=== PATIENT | female | born 1985 | race Caucasian/White ===

== ENCOUNTER 2024-12-07 01:22 | Inpatient (IN) | payer OTHER, SELFPAY ==
[2024-12-07 01:04] VITALS: BMI 37.8
--- NOTE | 2024-12-07 01:19 | HP.PCM.HOS_ITS ---
[facility] - General General Date of Admission: 12/07/24 Date of Service: 12/07/24 Chief Complaint: Acute lower abdominal pain with nausea and vomiting HPI Narrative JOSE DAVID FLOWERS, is a 39 F who initially presented to [facility] on 12/06/2024 for acute onset lower abdominal pain with nausea and vomiting. She was transferred here on 12/07 for further evaluation. Patient's medical history is significant for gallbladder removal and prior ovarian cyst. She did not require removal of the ovary. Does not take any medications at home. Was in her normal state of health this morning when around 9 AM she had acute onset severe lower abdominal pain. She states the pain started in her suprapubic to lower right quadrant area and wrapped around to the back. She then had an episode of nausea with vomiting due to the significant pain. She noted that this pain felt somewhat similar to her typical midcycle pain but was significantly worse. She is premenopausal and has regular cycles, and she is currently midcycle. Notably she denied any diarrhea. Denied any UTI symptoms. No history of kidney stones. At the outside ED she was tachycardic to the 120s and had a low-grade fever to 100.4 F. Blood pressure was borderline low in the 90s to 100 systolic. Labs notable for WBC count 23 with leukocyte predominance, were otherwise largely unremarkable. UA was unremarkable. Lactate 1.3. test negative. COVID/flu negative. Chest x-ray unremarkable. CT abdomen pelvis with IV contrast showed absent gallbladder with common bile duct size stable from previous, moderate stool burden, was otherwise unremarkable. Given concern for sepsis with unclear etiology, patient was given 3 L of IV fluids. After completing fluids her blood pressure remained in the 100s over 60s and she remained tachycardic to around 110. She was given another 1 L of IV fluid at that time with some blood pressure improvement to the 110s systolic but she remained tachycardic. Case was discussed with their hospitalist there but they were not comfortable taking the patient due to concern for sepsis of unclear etiology. She was then transferred here for further evaluation. I saw the patient at bedside on the floor, was present. Patient was sitting back comfortably in bed, conversing normally and in no acute distress. She appeared very comfortable and reported only very mild lower right-sided to suprapubic abdominal pain. Denies any fevers or chills. Denies any other acute pain or discomfort. Patient notes that her sister has history of ovarian torsion and required removal of an ovary. No other acute concerns at this time. Labs and imaging from outside facility: CBC- WBC 23, neut 87%, hgb 12.9, plt 313 CMP- Na 139, K 3.8, Cl 103, CO2 26, Cr 0.68, BUN 7, glucose 114, LFTs normal UA- negative leukocyte esterase, negative nitrites, 0 bacteria, 0 WBCs, 25 blood w/ 0-5 RBCs, 15 protein Lactate 1.3, lipase normal, test negative, COVID/flu negative CXR- unremarkable CTAP w/ IV contrast- GB absent, CBD stable from previous, moderate stool burden, otherwise normal [facility] Medical History (Updated 12/07/24 @ 02:[address] Kirk Godinez, DO) Cholecystectomy planned Allergy/AdvReac Type Severity Reaction Status Date / Time No Known Allergies Allergy Verified 12/07/24 02:42 Surgical History (Updated 12/07/24 @ 01:51 by Jacqui Gagnon) H/O dilation and curettage Social History Smoking Status: Never smoker ROS Constitutional Constitutional: Denies chills, fatigue, fever(s) or weakness Eyes Eyes: Denies change in vision Cardiovascular Cardiovascular: Denies chest pain Respiratory/Chest Respiratory/Chest: Denies cough or shortness of breath at rest Gastrointestinal Gastrointestinal: Reports abdominal pain; Denies constipation, diarrhea, nausea or vomiting Genitourinary Genitourinary: Denies dysuria Musculoskeletal Musculoskeletal: Denies arthralgias, back pain or myalgias Neurologic Neurologic: Denies dizziness or headache(s) Vital Signs Vital Signs Vital Signs: Weight Weight: 100 kg Body Mass Index (BMI) 37.8 Physical Exam Const alert, oriented x3 and no apparent distress Constitutional Narrative: Middle-aged Evangelical female, class II obesity, sitting back comfortably in bed, conversing normally, in no acute distress. General Appearance: cooperative and comfortable HEENT normocephalic, head/scalp atraumatic, hearing grossly normal bilaterally, nasal mucous membranes and turbinates normal and moist oral mucous membranes Eyes PERRL, EOMs intact bilaterally and conjunctivae normal Neck full ROM Chest inspection of chest normal Resp normal respiratory effort, normal air movement, no use of accessory muscles and clear to auscultation bilaterally Cardio regular rate, regular rhythm, no murmurs and peripheral pulses 2+ throughout GI normal to inspection, nondistended, normoactive bowel sounds, soft to palpation, non-tender and non-distended GI Narrative: No lower abdominal or suprapubic tenderness to palpation on exam. Back/Spine normal ROM Extremity normal to inspection, full ROM and no pedal edema Skin no rashes or lesions noted Psych mental status grossly normal Results Lab / Micro Data 12/07/24 01:55 12/07/24 01:55 Assessment & Plan Assessment/Plan (1) Abdominal pain: (2) Leukocytosis: PLAN: Plan Patient is a 39-year-old female who presented to [facility] on 12/07/2024 as a transfer from [place] for acute abdominal pain with nausea/vomiting and concern for sepsis with unclear source. 1. Episode of acute severe abdominal pain with nausea/vomiting ? Admit under inpatient status to PCU. Unclear etiology for episode of acute pain with nausea/vomiting. CT abdomen pelvis unremarkable. No diarrhea or other GI symptoms noted. No urinary symptoms or flank pain noted. UA benign. Highest concern is for gynecologic etiology. Patient is midcycle and noted this pain was similar but much more severe to previous ovulatory pain. Has history of ovarian cyst, unclear which side. Sister apparently has history of ovarian torsion. Abdominal pain and nausea resolved in outside ED. Will order limited abdominal ultrasound to assess for right adnexal/ovarian issues; however if this cannot be done today with it being Sunday, may be reasonable to discharge and complete in outpatient setting. 2. Concern for sepsis with unclear source ? Met SIRS criteria at outside ED with tachycardia, fever to 100.4 F, WBC count 23. No clear infectious source. Chest x-ray unremarkable and CT abdomen pelvis unremarkable at outside ED. Received 4 L of IV fluids total with only some improvement in tachycardia, continues to have heart rate around 110 along with low-grade fevers. BP stable in 110s over 70s. Given IV vancomycin and Zosyn at outside ED. Blood cultures drawn there. Patient noninfectious appearing at this time. Suspect low-grade fever may be due to ovulation. Repeat WBC count here of 13. Higher concern as above is for ovarian/adnexal etiology with possible transient torsion event, ultrasound ordered as above. Will hold on further antibiotics for now. 3. Mild normocytic anemia ? Hemoglobin 10.8 on admit, MCV 92. Hemoglobin 12.9 at outside ED, presume drop is secondary to heavy IV fluid administration. Baseline hemoglobin unclear, no active signs of bleeding. No need to monitor further CBCs while inpatient, outpatient follow-up. 4. Class II obesity ? BMI 37 on admit. Encouraged lifestyle modifications. 5. History of cholecystectomy ? Noted. DVT prophylaxis: Lovenox CODE STATUS: Full code, verified Expected disposition: Home, 2 to 3 days Total clinical time spent by myself addressing the patient's medical issues, reviewing all the data, and collaborating with patient's care team: 75 minutes. Charges/Coding Visit Charges Inpatient E&M: 02716 Init Hosp L3
[2024-12-07 01:48] VITALS: BP 115/75; PULSE 111; RESP 16; TEMP 37.7; O2SAT 95
[2024-12-07 02:23] LABS: Absolute Lymphocyte Count 2.18 X10^3/uL (0.83-4.51); Absolute Neutrophil Count 10.7 X10^3/uL (2.0-7.7); Basophil# 0.05 X10^3/uL; Basophil% 0.4 % (0-1); Eosinophil# 0.02 X10^3/uL; Eosinophils% 0.1 % (0-5); Hemoglobin 10.8 g/dL (12.0-15.0); Lymphocyte # 2.18 X10^3/ul (0.83-4.51); Lymphocyte % 15.8 % (19-41); Mean Corp Hgb Conc 33.8 g/dL (32-36); Mean Corpuscular Hgb 31.1 pg (27.0-32.0); Mean Corpuscular Volume 92.2 fL (81-99); Mean Platelet Vol. 10.7 fl (6.2-12.0); Monocyte# 0.75 X10^3/uL; Monocyte% 5.4 % (0-10); NRBC Flagged by Analyzer 0 % (0-5); Neutrophil # 10.74 X10^3/uL (2.7-7.7); Neutrophil % 77.9 % (47-70); Platelet Count 225 K/mm3 (150-450); RBC Distribution Width CV 13.2 % (11.6-14.6); RBC Distribution Width SD 44.2 fl (35.1-43.9); Red Blood Count 3.47 M/mm3 (4.2-5.4); White Blood Count 13.8 K/mm3 (4.4-11.0)
[2024-12-07] MEDS: Acetaminophen 325 MG Tablet 650 MG PO (03:05)
[2024-12-07] MEDS: MELATONIN 3 MG TABLET PO (03:05)
[2024-12-07 03:25] LABS: ALB/GLOB Ratio 1.2 RATIO (0.9-2.4); AST(SGOT) 26 U/L (<=31); Alanine Aminotransfer ALT/SGPT 13 U/L (<=34); Albumin, Serum 3.1 g/dL (3.5-5.0); Alkaline Phosphatase 41 U/L (35-104); Anion Gap 10 (5-15); BUN 7 mg/dL (4-19); BUN/Creat Ratio 10.4 RATIO (10-20); Calcium,Total 6.8 mg/dL (7.6-11.0); Carbon Dioxide 19.4 mmol/L (21.0-32.0); Chloride 108 mmol/L (98-108); Creatinine, Serum 0.63 mg/dL (0.70-1.20); EST Glomerular Filtration Rate 116 (>60); Estimated Creatinine Clearance 137.82 ml/min (50-250); Globulin 2.6 g/dL (2.2-4.2); Glucose 107 mg/dL (70-99); Potassium 3.9 mmol/L (3.3-5.1); Protein, Total 5.7 g/dL (5.9-8.4); Sodium Level 137 mmol/L (133-145); Total Bilirubin 0.31 mg/dL (0.00-1.30)
[2024-12-07 05:02] VITALS: PULSE 88; TEMP 37.2
[2024-12-07 08:32] VITALS: BP 106/81; PULSE 87; RESP 16; TEMP 36.6; O2SAT 100
[2024-12-07 15:00] VITALS: BP 117/78; PULSE 91; RESP 17; TEMP 36.7; O2SAT 100
--- NOTE | 2024-12-07 16:08 | PCM.PN.BLA ---
Progress Note 39-year-old female with abdominal pain and initial vital signs concerning for sepsis without a known source. She was at an outside hospital who provided her with Zosyn and vancomycin, white count improved from 23,000 to 13.8 however still no obvious source, and abdominal ultrasound is pending.
[2024-12-07 21:15] VITALS: BP 124/83; PULSE 79; RESP 16; TEMP 37.2; O2SAT 99
[2024-12-08 05:15] VITALS: BP 118/77; PULSE 72; RESP 16; TEMP 36.8; O2SAT 98
[2024-12-08 05:19] LABS: Absolute Neutrophil Count 3.9 X10^3/uL (2.0-7.7); Basophil# 0.05 X10^3/uL; Basophil% 0.6 % (0-1); Eosinophil# 0.31 X10^3/uL; Eosinophils% 3.7 % (0-5); Hematocrit 32.6 % (37-47); Hemoglobin 10.7 g/dL (12.0-15.0); Lymphocyte % 39.9 % (19-41); Mean Corp Hgb Conc 32.8 g/dL (32-36); Mean Corpuscular Hgb 30.8 pg (27.0-32.0); Mean Corpuscular Volume 93.9 fL (81-99); Mean Platelet Vol. 11.1 fl (6.2-12.0); Monocyte# 0.66 X10^3/uL; NRBC Flagged by Analyzer 0 % (0-5); Neutrophil # 3.92 X10^3/uL (2.7-7.7); Neutrophil % 47.4 % (47-70); Platelet Count 243 K/mm3 (150-450); RBC Distribution Width CV 13.1 % (11.6-14.6); RBC Distribution Width SD 44.9 fl (35.1-43.9); Red Blood Count 3.47 M/mm3 (4.2-5.4); White Blood Count 8.3 K/mm3 (4.4-11.0)
[2024-12-08 05:46] LABS: Anion Gap 8 (5-15); BUN 6 mg/dL (4-19); BUN/Creat Ratio 10.6 RATIO (10-20); Calcium,Total 7.8 mg/dL (7.6-11.0); Carbon Dioxide 21.5 mmol/L (21.0-32.0); Chloride 110 mmol/L (98-108); Creatinine, Serum 0.56 mg/dL (0.70-1.20); EST Glomerular Filtration Rate 119 (>60); Estimated Creatinine Clearance 155.05 ml/min (50-250); Glucose 93 mg/dL (70-99); Potassium 3.7 mmol/L (3.3-5.1); Sodium Level 140 mmol/L (133-145)
--- NOTE | 2024-12-08 06:00 | US_ITS ---
PROCEDURE: TRANSVAGINAL NON- 12/08/2024 REASON FOR EXAM: RIGHT OVARIAN/ADNEXAL TRANSIENT TORSION TECHNIQUE: Transvaginal pelvic ultrasound COMPARISON: None. FINDINGS: The uterus measures 10.3 x 5.9 x 6.3 cm. Diffusely thickened hyperechoic endometrium measuring 30 mm. Normal cervix. No intrauterine device is noted. No free fluid in the pelvic cul-de-sac. The right ovary measures 3.3 x 2.2 x 2.7 cm. The left ovary measures 4.1 x 3.1 x 2.7 cm. Left ovarian dominant follicle is noted. Normal bilateral ovarian flow without evidence of ovarian torsion. US/Transvaginal Non- IMPRESSION: 1. Diffusely thickened hyperechoic endometrium. 2. Normal bilateral ovarian flow without evidence of ovarian torsion. Reading Location: [place] [id number]
[2024-12-08 06:45] VITALS: O2SAT 93
[2024-12-08 08:18] VITALS: BP 114/68; PULSE 72; RESP 14; TEMP 36.6; O2SAT 97
--- NOTE | 2024-12-08 10:00 | CASEMGMT ---
RN CM Face to Face with patient for initial transition planning/care coordination assessment. RN CM introduced self and role at [facility]. Patient lying in bed, alert and oriented, at bedside. Patient willing to participate in assessment and is able to answer all questions appropriately. Care providers, pharmacy, and demographics verified. Strata: 1 PCP: Net[facility] Specialists: none Preferred Pharmacy: [facility] Retail at discharge. Insurance: [facility] Prescription Benefit: none Living Will/HPOA: none LNOK: Living Arrangements: Patient lives with in a 3 story home. Patient is independent and able to ambulate stairs. Transportation: Driving services DME/HHC: Patient has crutches at home. No previous HHC or SNF Patient wishes to discharge home, denies need for home health at this time. Patient states she has no further needs or concerns at this time. CM to follow for discharge planning needs that may arise. Disposition Plan: Patient to discharge home with family support and follow-up plans in place. Isabel DE LA TORRE, RN, CM
[2024-12-08] MEDS: Acetaminophen 325 MG Tablet 650 MG PO (11:45)
[2024-12-08 14:06] VITALS: BP 114/75; PULSE 82; RESP 16; TEMP 36.6; O2SAT 100
--- NOTE | 2024-12-08 14:15 | PCM.DC ---
Discharge Instructions Diet Discharge Diet: No restrictions DC O2, CPAP, BIPAP needs Home O2 Discharge instructions: No Dressing / Incision Weight Bearing Status: Full weight bearing Follow Up Care Test Results: Test results from this visit will be discussed in further detail at your follow-up appointment, if applicable. Discharge Plan Admission Admit Date/Time: 12/07/24 01:22 Primary Reason for Your Visit: Lower abdominal pain-etiology unclear, increased white blood cell count Attending Provider: Ernie Benjamin Primary Care Provider: Loly Duque Consulting Providers: Kirk Godinez; Osbaldo Elizondo Discharge Orders/Prescriptions Referrals / Follow Up: [facility] [Provider Group] - See Referral Note (They will be calling you to schedule an appointment for you as a new patient to take place in the next 2 to 3 weeks) Omaira Rg, EVA-C [Non-Staff] - See Referral Note (Within 2 to 3 weeks) Disposition Disposition (needs filled in before D/C Order can be placed): Home, Self Care
[2024-12-08 14:21] VITALS: BP 114/75; PULSE 82; RESP 16; TEMP 36.6; O2SAT 100
--- NOTE | 2024-12-08 14:21 | DS.PCM_ITS ---
Providers Date of Admission: 12/07/24 Date of Discharge: 12/08/24 Primary Care Physician: Dr. Loly Duque MD Reason For Visit: SEPSIS WITH UNCLEAR SOURCE Diagnosis Discharge Diagnosis (1) Abdominal pain: Status: Acute Code(s): R10.9 - Unspecified abdominal pain (2) Leukocytosis: Status: Acute Code(s): D72.829 - Elevated white blood cell count, unspecified Plan 1. Leukocytosis-etiology unclear #2 abdominal pain with nausea and vomiting-etiology unclear Hospital Course Operations None Procedures None Summary of Care Provided Minutes Spent on Discharge: 31 Hospital Course: This 39-year-old white female was directly admitted to [facility] from an outside hospital emergency room after going there for evaluation of nausea and vomiting and abdominal pain. It was noted that the patient's white blood cell count was elevated at 23, 400, her UA was unremarkable, chest x-ray was unremarkable, CT of the abdomen and pelvis did not show any acute pathology. There was concern for sepsis and the patient was given IV fluids and critically admitted to [facility]. Follow- up labs were obtained which showed a decreased white blood cell count, CBC the next day showed a normal white blood cell count. Patient had no episodes of nausea, vomiting, or abdominal pain during her hospitalization. Patient underwent a transvaginal ultrasound which was unremarkable. The exact etiology for the patient's symptoms and elevated white blood cell count were not determined. This examiner felt the sepsis was ruled out. I made a call to the outside hospital lab which stated the patient's urine culture was unremarkable. On 12/08/2024, patient was seen and examined: On examination she appeared in good health and spirits, she does not appear to be in any distress. Vital signs as documented. Skin warm and dry and without overt rashes. Neck without JVD, thyroid appears normal, trachea is midline, neck is supple. Lungs clear, normal air movement was noted. Heart exam notable for regular rhythm, normal sounds and absence of murmurs, rubs or gallops. Abdomen unremarkable and without evidence of organomegaly, masses, or abdominal aortic enlargement, bowel sounds are present in all 4 quadrants, no abdominal tenderness was noted. Extremities nonedematous, no cyanosis was noted, no clubbing was noted. Neuro: Cranial nerves II through XII are grossly intact, no focal motor deficits were noted, sensation to light touch and pinprick is intact, motor exam 5/5 throughout. Psych: Patient is alert and oriented x3, she does not appear anxious or depressed, she does not appear agitated. On 12/08/2024, patient was discharged home in stable condition Weight / BMI Weight Weight: 100 kg Body Mass Index (BMI) 37.8 ABG / Lab / Microbiology Data 12/08/24 04:18 12/08/24 04:18 Laboratory: Laboratory Results - last 24 hr 12/08/24 04:18: WBC 8.3, RBC 3.47 L, Hgb 10.7 L, Hct 32.6 L, MCV 93.9, MCH 30.8, MCHC 32.8, RDW Std Deviation 44.9 H, RDW Coeff of Scott 13.1, Plt Count 243, MPV 11.1, Immature Gran % (Auto) 0.400, Neut % (Auto) 47.4, Lymph % (Auto) 39.9, [place] % (Auto) 8.0, Eos % (Auto) 3.7, Baso % (Auto) 0.6, Absolute Neuts (auto) 3.9, Absolute Lymphs (auto) 3.30, Nucleated RBC % 0, Sodium 140, Potassium 3.7, Chloride 110 H, Carbon Dioxide 21.5, Anion Gap 8, BUN 6, Creatinine 0.56 L, Estim Creat Clear Calc 155.05, Est GFR (MDRD) Non-Af 119, BUN/Creatinine Ratio 10.6, Glucose 93, Calcium 7.8 Radiography Diagnostic Testing: Radiology Impression Transvaginal US 12/08/24 06:00 IMPRESSION: 1. Diffusely thickened hyperechoic endometrium. 2. Normal bilateral ovarian flow without evidence of ovarian torsion. [facility] Instructions Discharge Diet: No restrictions Weight Bearing Status: Full weight bearing DC O2, CPAP, BIPAP Needs Home O2 Discharge instructions: No Meaningful Use Info Meaningful Use Meaningful Use Diagnoses (Choose all that apply): None applicable Ischemic Stroke Statin Dosing Therapy Reference: STATIN DOSE THERAPY REFERENCE: * Patients > 75 years receive moderate or high dose statin therapy. * Patients 75 years or YOUNGER should receive HIGH intensity statin dose unless contraindicated. You will be required to document reason for non-treatment if statin daily dose does not meet guidelines. HIGH DOSE STATIN THERAPY DAILY Atorvastatin > than or = to 40 mg Rosuvastatin > than or = to 20 mg Amlodipine + Atorvastatin > than or = to 2.5/40 mg Ezetimibe + Simvastatin 10/80 mg Simvastatin 80mg Discharge Plan Admission Admit Date/Time: 12/07/24 01:22 Primary Reason for Your Visit: Lower abdominal pain-etiology unclear, increased white blood cell count Attending Provider: Ernie Benjamin Primary Care Provider: Loly Duque Consulting Providers: Kirk Godinez; Osbaldo Elizondo Discharge Orders/Prescriptions Referrals / Follow Up: [facility] [Provider Group] - See Referral Note (They will be calling you to schedule an appointment for you as a new patient to take place in the next 2 to 3 weeks) Omaira Rg, EVA-C [Non-Staff] - See Referral Note (Within 2 to 3 weeks) Disposition Disposition (needs filled in before D/C Order can be placed): Home, Self Care Charges/Coding Visit Charges Inpatient E&M: 11631 Disch Hosp >30min
== END 2024-12-08 15:06 | disposition home or self-care (01) | DRG 392 ==
PROVIDERS: Family Medicine; Admitting Provider Hospitalist; PCP Family Medicine; Referring Provider Hospitalist; Visit Provider Internal Medicine
DX: R10.9 Unspecified abdominal pain (principal); D64.9 Anemia, unspecified; E66.812 Obesity, class 2; D72.829 Elevated white blood cell count, unspecified; Z68.37 Body mass index [BMI] 37.0-37.9, adult
CPT/HCPCS: 36415; 76830; 80048; 80053; 85025

== ENCOUNTER → 2024-12-22 | Outpatient (CLI) | payer OTHER, SELFPAY ==
[2024-12-25 07:07] LABS: HPV APTIMA, High Risk Negative (Negative)
== END | disposition home or self-care (01) ==
PROVIDERS: PCP Family Medicine; Referring Provider Nurse Practitioner Family; Visit Provider Nurse Practitioner Family
DX: Z12.4 Encounter for screening for malignant neoplasm of cervix (principal)
CPT/HCPCS: 87624; 88175; G0145

== ENCOUNTER → 2025-01-09 | Outpatient (CLI) | payer OTHER, SELFPAY ==
--- NOTE | 2025-01-09 | EMB_PTH ---
PATIENT: JOSE DAVID FLOWERS LOC: [facility] U#:[id number] AGE/SX: 39/F ROOM: RE01/09/[address]: Dr. Miguelina Lam DO : 1985 BED: DIS: 01/09/2025 SPEC #: [id number] RECD: 01/09/25 16:43 STATUS: VANDA REJaron #: [id number] JUDI: 01/09/25 00:[address]: Miguelina Lam DEPT: SURGICAL PATHOLOGY RECD BY: Carlitos Sun ENTERED: 01/13/25 08:41 SP TYPE: ENDOM BX/C SHAHNAZ DR: Dr. Loly Duque MD Tissues: A - Endometrium, NOS Procedures: Surgery Specimen Level IV HEADER OPERATION: Endometrial biopsy PRE-OP DIAGNOSIS: Endometrial thickening TISSUE SUBMITTED: A- Endometrial lining MICROSCOPIC DIAGNOSIS A. Endometrium, biopsy: * Secretory endometrium. MICROSCOPIC DESCRIPTION Slides are reviewed. GROSS DESCRIPTION A. Received in formalin in a container labeled with the patient's name, date of , and EMB are multiple gilliam-pink fragments of soft tissue admixed with blood and mucus measuring 2.2 x 2.1 x 0.5 cm in aggregate. Submitted in toto in A1. B 01-13-2025 CPT:97020
[2025-01-13 21:07] LABS: Chlamydia By Nucleic Acid AMP Negative (Negative); Gonococcus By Nucleic Acid AMP Negative (Negative)
== END | disposition home or self-care (01) ==
LOC: LABSPEC 14:28
PROVIDERS: PCP Family Medicine; Referring Provider Obstetrics & Gynecology; Visit Provider Obstetrics & Gynecology
DX: Z86.19 Personal history of other infectious and parasitic diseases (principal); R93.89 Abnormal findings on diagnostic imaging of other specified body structures
CPT/HCPCS: 87070; 87077; 87205; 87491; 87591; 88305

== ENCOUNTER 2025-06-05 11:22 | Observation (INO) | payer OTHER, SELFPAY ==
[2025-05-22 12:24] LABS: Hematocrit 37.2 % (37-47); Hemoglobin 12.7 g/dL (12.0-15.0); Immature Granulocytes Count 0.020 X10^3/uL (0.0-0.0); Mean Corp Hgb Conc 34.1 g/dL (32-36); Mean Corpuscular Volume 91.4 fL (81-99); Mean Platelet Vol. 10.8 fl (6.2-12.0); NRBC Flagged by Analyzer 0 % (0-5); Platelet Count 316 K/mm3 (150-450); RBC Distribution Width CV 12.7 % (11.6-14.6); RBC Distribution Width SD 42.1 fl (35.1-43.9); Red Blood Count 4.07 M/mm3 (4.2-5.4); White Blood Count 10.1 K/mm3 (4.4-11.0)
[2025-06-05] VITALS (19 sets, daily range): BP systolic 96–134; BP diastolic 60–91; PULSE 60–103; RESP 14–16; TEMP 36.4–37.1; O2SAT 96–100; BMI 36.3
[2025-06-05 05:51] LABS: Internal QC Validated? YES +Cl - CLEAR BKGD; Pregnancy, Urine Negative Negative; Record Kit Lot#,Urine Preg 0000980607
[2025-06-05] MEDS: Lactated Ringers 1,000 ML 40 ML IV (06:26)
[2025-06-05 06:27] LABS: Hematocrit 38.7 % (37-47); Hemoglobin 12.8 g/dL (12.0-15.0); Mean Corp Hgb Conc 33.1 g/dL (32-36); Mean Corpuscular Volume 92.4 fL (81-99); Mean Platelet Vol. 10.5 fl (6.2-12.0); Platelet Count 324 K/mm3 (150-450); RBC Distribution Width CV 12.6 % (11.6-14.6); RBC Distribution Width SD 42.8 fl (35.1-43.9); Red Blood Count 4.19 M/mm3 (4.2-5.4); White Blood Count 10.7 K/mm3 (4.4-11.0)
[2025-06-05] MEDS: Scopolamine 1mg/72hr Patch 1 PATCH TD (06:29)
[2025-06-05 06:55] LABS: Anion Gap 9 (5-15); BUN 14 mg/dL (4-19); BUN/Creat Ratio 19.8 RATIO (10-20); Calcium,Total 8.6 mg/dL (7.6-11.0); Carbon Dioxide 24.4 mmol/L (21.0-32.0); Chloride 106 mmol/L (98-108); Estimated Creatinine Clearance 118.42 ml/min (50-250); Glucose 119 mg/dL (70-99); Magnesium 2.0 mg/dL (1.5-2.2); Potassium 3.7 mmol/L (3.3-5.1)
[2025-06-05] MEDS: Magnesium 1 GM over 15 mins IV (07:04)
[2025-06-05] MEDS: Midazolam 2 MG/2 ML Syringe IV (08:00)
[2025-06-05] MEDS: Lidocaine 1% (5 ml sdv) 5 ML Vial IV (08:04)
[2025-06-05] MEDS: fentaNYL 100 MCG/2 ML Ampul IV (09:29)
[2025-06-05] MEDS: Lactated Ringers 1,000 ML 1000 ML IV (11:04)
[2025-06-05] MEDS: Lactated Ringers 1,000 ML 100 ML IV (14:18)
[2025-06-06] MEDS: Lactated Ringers 1,000 ML 100 ML IV (00:47)
[2025-06-06 02:00] VITALS: BP 105/62; PULSE 75; RESP 16; TEMP 36.8; O2SAT 99
[2025-06-06 07:26] VITALS: O2SAT 95
== END 2025-06-06 14:25 | disposition home or self-care (01) ==
LOC: SDC 11:47 → MS3 11:47
PROVIDERS: Anesthesiology; Admitting Provider Urology; PCP Student in an Organized Health Care Education/Training Program; Referring Provider Obstetrics & Gynecology; Visit Provider Obstetrics & Gynecology
PROC: 0UT90ZZ Resection of Uterus, Open Approach (ICD-10-PCS; principal; 2025-06-05 07:10)
PROC: (CPT 57260; 2025-06-05 07:10)
DX: N81.3 Complete uterovaginal prolapse (principal); N32.81 Overactive bladder
CPT/HCPCS: 57260; 00942; 36415; 80048; 81025; 82962; 83735; 85025; 85027; 86850; 86900; 86901; 88307; 94668; 96361; 96374; 99221; C1758; G0378; J0525; J2405; J3475